=== PATIENT | female | born 1990 | race Caucasian/White ===

== ENCOUNTER 2024-06-03 12:36 | Emergency (ER) | payer OTHER ==
[2024-06-03 12:41] VITALS: BP 154/78; PULSE 95; RESP 18; TEMP 98.7; BMI 26.5
== END 2024-06-03 14:50 | disposition home or self-care (01) ==
LOC: JERFT 12:36
DX: T25.222A Burn of second degree of left foot, initial encounter (principal); T25.212A Burn of second degree of left ankle, initial encounter; X13.1XXA Other contact with steam and other hot vapors, initial encounter
CPT/HCPCS: 99283-25